=== PATIENT | female | born 1980 | race Caucasian/White ===

== ENCOUNTER 2017-02-28 20:19 | Emergency (ER) | payer OTHER ==
--- NOTE | ~2017-02-28 | CR173 ---
[facility]. [facility] A Service of [facility] & [facility] RADIOLOGY TEXT RESULTS PATIENT: JOSE CRUZ DUMONT LOCATION: SED : 78 UNIT #: [id number] AGE: [address]: KLEVER STEWART SEX: F ORDER DR: [id number] [place] [id number] E MR#: [id number] Acc #: [id number] NAME: JOSE CRUZ DUMONT : 1980 SEX: F STUDY DATE/TIME: 02/28/2017 20:15 UNIT: SED ROOM: STUDY DESCRIPTION: CR Knee 3 Views Rt Attending Physician: Klever Stewart Ordering Physician: Klever Stewart Primary Care Physician: Simba Pagan M.D. MEDICAL IMAGING REPORT This report is preliminary unless electronic signature is present. EXAM Right knee 02/28 INDICATIONS Patellar pain after moving a couch today. TECHNIQUE/COMPARISON 3 views of the right knee are compared with 03/06/2015. FINDINGS No fracture or malalignment is seen. There is no joint effusion. IMPRESSION Negative right knee. Dictated by... West Xavier Jr., M.D. THIS IS AN ELECTRONICALLY VERIFIED REPORT West Xavier Jr., M.D. at 02/28/2017 10:28 PM RLK/to TD: 02/28/2017 22:21 JOB #: [id number] MEDICAL IMAGING REPORT Page 1 of 1
[~2017-02-28 20:19] MED LIST: AUGMENTIN875 M1 PO; CELEXA20 MG; LANTUS100 U/ML SUBQ; NEURONTIN600 MG PO; ZANAFLEX PO; [UNRECOGNIZED DRUG - REMARK]
== END 2017-02-28 20:50 | disposition home or self-care (01) ==
LOC: SED 20:19
DX: S80.01XA Contusion of right knee, initial encounter (principal); E11.9 Type 2 diabetes mellitus without complications; F17.210 Nicotine dependence, cigarettes, uncomplicated; Z79.4 Long term (current) use of insulin; Z90.710 Acquired absence of both cervix and uterus; Z91.040 Latex allergy status; Z79.899 Other long term (current) drug therapy; X50.0XXA Overexertion from strenuous movement or load, initial encounter
CPT/HCPCS: 29530; 73562; 96372; 99283; J1885

== ENCOUNTER 2017-03-13 13:05 | Emergency (ER) | payer OTHER ==
--- NOTE | ~2017-03-13 | CR63 ---
[facility] A Service of [facility] RADIOLOGY TEXT RESULTS PATIENT: JOSE CRUZ DUMONT LOCATION: SED : 78 UNIT #: [id number] AGE: [address]: Bhavesh Price DO SEX: F ORDER DR: [id number] [place] [id number] E MR#: [id number] Acc #: [id number] NAME: JOSE CRUZ DUMONT : 1980 SEX: F STUDY DATE/TIME: 03/13/2017 13:46 UNIT: SED ROOM: STUDY DESCRIPTION: CR Chest 2 View Attending Physician: Bhavesh Price Ordering Physician: Bhavesh Price Primary Care Physician: Simba Pagan M.D. MEDICAL IMAGING REPORT This report is preliminary unless electronic signature is present. EXAM Chest x-ray two-views HISTORY Coughing and vomiting starting 30 minutes prior to arrival. COMMENT Two views of the chest are reviewed. Comparison study is from 10/02/2016. There is no pleural effusion. Heart size is normal. There is some thickening of the central peribronchovascular soft tissues and some distortion of parenchymal architecture in general. Please correlate for clinical evidence of asthma or bronchitis. Appearance is not changed from prior. There is no focal alveolar infiltrate. There is no pneumothorax. No congestive failure. IMPRESSION 1. Some thickening of the central peribronchovascular soft tissues again seen with some distortion of parenchymal architecture. Please correlate for clinical evidence of asthma or bronchitis. No acute infiltrate, acute congestive failure, pleural effusion or pneumothorax. Dictated by... Alicia Braxton M.D. THIS IS AN ELECTRONICALLY VERIFIED REPORT Alicia Braxton M.D. at 03/14/2017 7:37 AM AMY/diane TD: 03/14/2017 03:57 [facility] A Service of [facility] RADIOLOGY TEXT RESULTS PATIENT: JOSE CRUZ DUMONT LOCATION: SED : 79 UNIT #: [id number] AGE: [address]: Bhavesh Price DO SEX: F ORDER DR: JOB #: [id number] MEDICAL IMAGING REPORT Page 1 of 1
[2017-03-13 14:15] LABS: BASOPHIL# 0.1 X10e3 (0-0.3); EOSINOPHIL# 0.1 X10e3 (0-0.7); EOSINOPHIL% 1.2 % (0.0-7.0); HEMATOCRIT 48.7 % (35.0-45.0); HEMOGLOBIN 16.3 gm/dL (12.0-16.0); LYMPHOCYTE# 4.2 X10e3 (1.0-3.5); LYMPHOCYTE% 34.7 % (17.0-45.0); MEAN CELL VOLUME 90.9 FL (83-96); MEAN CORPUSCULAR HEMOGLOBIN 30.5 PG (28-34); MEAN CORPUSCULAR HGB CONC 33.6 g/dL (30-36); MONOCYTE# 0.6 X10e3 (0-1.0); MONOCYTE% 5.1 % (3.0-12.0); PLATELET COUNT 137 X10e3 (140-420); RED BLOOD COUNT 5.36 X10e (3.90-5.30); RED CELL DISTRIBUTION WIDTH 13.3 % (11.0-15.5)
[2017-03-13 14:36] LABS: ALBUMIN SERUM 4.2 g/dL (3.5-5.0); ALKALINE PHOSPHATASE 64 U/L (32-92); ALT (SGPT) 20 U/L (10-40); AST (SGOT) 17 U/L (10-42); BILIRUBIN,TOTAL 0.4 mg/dL (0.2-2.0); BLOOD UREA NITROGEN 19 mg/dL (9-23); BUN/CREATININE RATIO 31.66; CALCIUM SERUM 9.6 mg/dL (8.4-10.2); CARBON DIOXIDE 28 mmol/L (22-31); CHLORIDE 104 mmol/L (100-111); CREATININE SERUM 0.6 mg/dL (0.6-1.4); GLOM FILT RATE Estimated 116.4 mL/min (>60); GLUCOSE FASTING 189 mg/dL (70-110); PROTEIN TOTAL SERUM 7.7 g/dL (6.0-8.3); SODIUM 139 mmol/L (135-145)
[2017-03-13 14:45] LABS: DIFF IND NO
[2017-03-13 14:46] LABS: BILIRUBIN, DIRECT <0.1 mg/dL (0.0-0.2); BILIRUBIN,INDIRECT 0.3 mg/dL (0.0-0.9)
[2017-03-13 14:55] LABS: ACETONE, SERUM 0 MG/DL (0-0); BETA-HCG SCREEN-PREGNANCY NEG
== END 2017-03-13 15:27 | disposition left against medical advice (07) ==
LOC: SED 13:05
PROVIDERS: Emergency Medicine
DX: R05 Cough (principal); R11.10 Vomiting, unspecified; E11.9 Type 2 diabetes mellitus without complications; G62.9 Polyneuropathy, unspecified; N80.9 Endometriosis, unspecified; F17.210 Nicotine dependence, cigarettes, uncomplicated; Z90.710 Acquired absence of both cervix and uterus
CPT/HCPCS: 36415; 71020; 80048; 80076; 82010; 84703; 85025; 87040; 94640; 96361; 96374; 99284; J2405

== ENCOUNTER 2017-03-29 17:37 | Emergency (ER) | payer OTHER ==
[2017-03-30] MEDS ORDERED: LORTAB 7.5-3251 EACH PO (20:58)
== END 2017-03-29 18:42 | disposition left against medical advice (07) ==
LOC: SED 17:37
DX: Z53.21 Procedure and treatment not carried out due to patient leaving prior to being seen by health care provider (principal)

== ENCOUNTER 2017-03-30 20:47 | Emergency (ER) | payer OTHER ==
--- NOTE | ~2017-03-30 | CR157 ---
[facility]. [facility] A Service of [facility] & [facility] RADIOLOGY TEXT RESULTS PATIENT: JOSE CRUZ DUMONT LOCATION: SED : [birth year] UNIT #: [id number] AGE: [address]: GINI TAMEZ SEX: F ORDER DR: [id number] [place] [id number] E MR#: [id number] Acc #: [id number] NAME: JOSE CRUZ DUMONT : 1980 SEX: F STUDY DATE/TIME: 03/30/2017 21:11 UNIT: SED ROOM: STUDY DESCRIPTION: CR Humerus Min 2 View Rt Attending Physician: Gini Tamez Aprn Ordering Physician: Gini Tamez Aprn Primary Care Physician: Simba Pagan M.D. MEDICAL IMAGING REPORT This report is preliminary unless electronic signature is present. EXAM Right humerus HISTORY Injury an hour ago banging her right arm on the counter with pain. COMMENT Two views of the right humerus reviewed. No previous. FINDINGS No acute fracture, dislocation, or radiopaque foreign body. IMPRESSION Negative. Dictated by... Alicia Braxton M.D. THIS IS AN ELECTRONICALLY VERIFIED REPORT Alicia Braxton M.D. at 03/31/2017 2:27 PM AMY/ilya TD: 03/31/2017 09:20 JOB #: [id number] MEDICAL IMAGING REPORT Page 1 of 1
--- NOTE | ~2017-03-30 | CR94 ---
[facility]. [facility] A Service of [facility] & [facility] RADIOLOGY TEXT RESULTS PATIENT: JOSE CRUZ DUMONT LOCATION: SED : [birth year] UNIT #: [id number] AGE: [address]: GINI TAMEZ SEX: F ORDER DR: [id number] [place] [id number] E MR#: [id number] Acc #: [id number] NAME: JOSE CRUZ DUMONT : 1980 SEX: F STUDY DATE/TIME: 03/30/2017 21:11 UNIT: SED ROOM: STUDY DESCRIPTION: CR Elbow Min 3 Views Rt Attending Physician: Gini Tamez Aprn Ordering Physician: Gini Tamez Aprn Primary Care Physician: Simba Pagan M.D. MEDICAL IMAGING REPORT This report is preliminary unless electronic signature is present. EXAM Elbow, 3 views, right. HISTORY Right elbow injury an hour ago, banging her elbow on the counter resulting in pain. COMMENTS Three views of the right elbow are reviewed. No previous. No acute fracture, dislocation, or radiopaque foreign body. IMPRESSION Negative plain film assessment of right elbow. Dictated by... Alicia Braxton M.D. THIS IS AN ELECTRONICALLY VERIFIED REPORT Alicia Braxton M.D. at 03/31/2017 2:27 PM AMY/dania TD: 03/31/2017 08:58 JOB #: [id number] MEDICAL IMAGING REPORT Page 1 of 1
[2017-03-30] MEDS ORDERED: LORTAB 7.5-3251 EACH PO (20:58)
== END 2017-03-30 21:58 | disposition home or self-care (01) ==
LOC: SED 20:47
DX: S50.01XA Contusion of right elbow, initial encounter (principal); E11.9 Type 2 diabetes mellitus without complications; F41.9 Anxiety disorder, unspecified; F17.210 Nicotine dependence, cigarettes, uncomplicated; Z85.42 Personal history of malignant neoplasm of other parts of uterus; Z90.710 Acquired absence of both cervix and uterus; Z91.040 Latex allergy status; Z79.4 Long term (current) use of insulin; Z79.891 Long term (current) use of opiate analgesic; Z79.899 Other long term (current) drug therapy; W22.8XXA Striking against or struck by other objects, initial encounter; Y92.009 Unspecified place in unspecified non-institutional (private) residence as the place of occurrence of the external cause
CPT/HCPCS: 73060; 73080; 99284

== ENCOUNTER 2017-05-13 22:02 | Emergency (ER) | payer OTHER ==
--- NOTE | ~2017-05-13 | EKG ---
PATIENT: JOSE CRUZ DUMONT UNIT #: [id number] Ventricular Rate: 64 BPM Atrial Rate: 64 BPM P-R Interval: 186 ms QRS Duration: 92 ms Q-T Interval: 422 ms QTC Calculation(Bezet): 435 ms P Chinle: 46 degrees Calculated R Chinle: 57 degrees Calculated T Chinle: 45 degrees Diagnosis Line: Normal sinus rhythm with sinus arrhythmia Diagnosis Line: Normal ECG Diagnosis Line: No previous ECGs available Diagnosis Line: Confirmed by AUREA WHITING MD ([id number]) on Diagnosis Line: 05/16/2017 12:44:34 PM INTERPRETING MD: HENOK PAIGE
--- NOTE | ~2017-05-13 | CR63 ---
[facility]. [facility] A Service of [facility] & [facility] / [facility] RADIOLOGY TEXT RESULTS PATIENT: JOSE CRUZ DUMONT LOCATION: SED : [birth year] UNIT #: [id number] AGE: [address]: Kamari Chu MD SEX: F ORDER DR: [id number] [place] [id number] E MR#: [id number] Acc #: [id number] NAME: JOSE CRUZ DUMONT : 1980 SEX: F STUDY DATE/TIME: 05/13/2017 22:46 UNIT: SED ROOM: STUDY DESCRIPTION: CR Chest 2 View Attending Physician: Kamari Chu M.D. Ordering Physician: Kamari Chu M.D. Primary Care Physician: Simba Pagan M.D. MEDICAL IMAGING REPORT This report is preliminary unless electronic signature is present. EXAM 2-view chest INDICATIONS Chest pain tonight. PROCEDURE Frontal and lateral views of the chest. COMPARISON 03/13/2017 FINDINGS Heart size is within normal limits. The lungs are clear. No pleural fluid. No pneumothorax. IMPRESSION No active process Dictated by... Raoul Alonso M.D. THIS IS AN ELECTRONICALLY VERIFIED REPORT Raoul Alonso M.D. at 05/14/2017 9:56 PM EEGabe/mina TD: 05/14/2017 04:38 JOB #: [id number] MEDICAL IMAGING REPORT Page 1 of 1
[~2017-05-13 22:02] MED LIST changes: +LORTAB 7.5-3251 EACH PO
[2017-05-13] MEDS ORDERED: PRAMIPEXOLE (22:15)
[2017-05-13] MEDS ORDERED: HYDROXYZINE (22:15)
[2017-05-13] MEDS ORDERED: HUMULIN (22:15)
[2017-05-13 22:42] LABS: POC - CKMB <1.0 ng/mL (0.0-7.9); POC - TROPONIN <0.05 ng/mL (<=0.05)
[2017-05-13 22:51] LABS: BASOPHIL# 0.1 X10e3 (0-0.3); BASOPHIL% 0.5 % (0-2.5); DIFF IND NO; EOSINOPHIL# 0.2 X10e3 (0-0.7); EOSINOPHIL% 1.5 % (0.0-7.0); HEMOGLOBIN 16.3 gm/dL (12.0-16.0); LYMPHOCYTE# 4.3 X10e3 (1.0-3.5); LYMPHOCYTE% 39.6 % (17.0-45.0); MEAN CELL VOLUME 90.6 FL (83-96); MEAN CORPUSCULAR HEMOGLOBIN 30.8 PG (28-34); MEAN PLATELET VOLUME 11.1 FL (6.5-11.5); MONOCYTE# 0.5 X10e3 (0-1.0); NEUTROPHIL# 5.7 X10e3 (1.5-7.1); NEUTROPHIL% 53.4 % (40-75); PLATELET COUNT 131 X10e3 (140-420); RED CELL DISTRIBUTION WIDTH 13.3 % (11.0-15.5); WHITE BLOOD COUNT 10.7 X10e3 (4.0-10.5)
[2017-05-13 22:53] LABS: PROTHROMBIN TIME (PATIENT) 11.7 SECONDS (9.5-12.4)
[2017-05-13 23:00] LABS: BUN/CREATININE RATIO 23.33; CALCIUM SERUM 9.4 mg/dL (8.4-10.2); CREATININE SERUM 0.6 mg/dL (0.6-1.4); GLOM FILT RATE Estimated 116.4 mL/min (>60); PARTIAL THROMBOPLASTIN TIME 28.8 SECONDS (25.6-38.1); POTASSIUM 3.6 mmol/L (3.5-5.1)
[2017-05-14 01:16] LABS: POC - CKMB <1.0 ng/mL (0.0-7.9); POC - TROPONIN <0.05 ng/mL (<=0.05)
== END 2017-05-14 01:19 | disposition home or self-care (01) ==
LOC: SED 22:02
PROVIDERS: Emergency Medicine
DX: F41.9 Anxiety disorder, unspecified (principal); B35.4 Tinea corporis; E11.9 Type 2 diabetes mellitus without complications; Z79.4 Long term (current) use of insulin; F17.200 Nicotine dependence, unspecified, uncomplicated; Z91.040 Latex allergy status
CPT/HCPCS: 36415; 71020; 80048; 82553; 82947; 84484; 85025; 85610; 85730; 93005; 99285